=== PATIENT | male | born 1955 | race Caucasian/White ===

== ENCOUNTER 2017-03-25 15:00 | Emergency (ER) | payer OTHER ==
[~2017-03-25] VITALS: Ht 175.3 cm; Wt 99.8 kg
[2017-03-25 15:00] VITALS: BP 125/81
[~2017-03-25 15:00] MED LIST: KEFLEX500 M1 PO
== END 2017-03-25 15:26 | disposition home or self-care (01) ==
LOC: M.ERS 15:00
DX: S51.011D Laceration without foreign body of right elbow, subsequent encounter (principal); X58.XXXD Exposure to other specified factors, subsequent encounter